=== PATIENT | male | born 1955 | race African-American/Black ===

== ENCOUNTER 2021-02-10 04:36 | Inpatient (IN) ==
[2021-02-10 05:56] LABS: Basophils # 0.1 10*3/uL (0.0-0.2); Basophils % 0.5 % (0.0-0.8); Eosinophils # 0.3 10*3/uL (0.0-0.87); Hematocrit 30.9 VOL% (42.0-52.0); Hemoglobin 10.2 GM/DL (14.0-18.0); Immature Granulocytes % 0.5 %; Immature Granulocytes Absolute 0.05 #; Lymphocytes # 2.2 10*3/uL (1.4-4.0); Lymphocytes % 20.2 % (21.2-54.2); Mean Platelet Volume 9.1 FL (9.6-12.0); Monocytes % 5.8 % (1.7-12.7); Platelet Count 249 T/CUMM (130-400); Red Blood Count 3.36 MC/CUMM (3.8-5.5); Red Cell Distribution Width 12.5 % (9.3-17.3)
[2021-02-10] MEDS ORDERED: GLUCAGON 1 MG VIAL IM PRN (05:58)
[2021-02-10] MEDS ORDERED: DEXTROSE 50% 25 GM/50 ML VIAL IV PRN (05:58)
[2021-02-10 06:04] LABS: Bilirubin,Urine Negative (Negative); Blood, Urine Moderate mg/dL (Negative); Glucose,Urine (UA) 50 mg/dL (Negative); Ketones,Urine 5 mg/dL (Negative); Nitrite,Urine Negative (Negative); Protein,Urine 100 MG/DL; RBC,Urine 35810 /HPF (0-4); Urine Appearance CLOUDY (Clear); Urine Color Red (Yellow); Urine Specific Gravity 1.019 (1.001-1.035); Urine Urobilinogen < 2.0 EU/DL (0.2-1.0)
[2021-02-10 06:06] LABS: PT Patient Result 11.6 SECS (10.5-12.0)
[2021-02-10 06:18] LABS: Albumin 3.1 G/DL (3.4-5.0); Bilirubin,Total 0.7 MG/DL (0.20-1.00); Calcium 8.1 MG/DL (8.5-10.1); Osmolality,Calculated 272.5 MOS/KG (273-304); Potassium 3.4 MMOL/L (3.5-5.1); Total Protein 6.9 G/DL (6.4-8.2)
[2021-02-10] MEDS ORDERED: FINASTERIDE 5 MG TABLET PO SCH (09:00)
[2021-02-10] MEDS ORDERED: MAGNESIUM SULF RIDER 4 GM/100 ML PREMIX IV ONE (09:00)
[2021-02-10] MEDS: SODIUM CHLOR 0.9% KCL 20 MEQ 20 MEQ/1,000 ML BAG IV SCH ×2 (09:34→20:40)
[2021-02-10] MEDS: cefTRIAXone 1,000 MG in SODIUM CHLORIDE 0.9% 100 ML IV SCH (09:49)
[2021-02-10] MEDS: MONTELUKAST 10 MG TABLET PO SCH (09:50)
[2021-02-10] MEDS: ATORVASTATIN 20 MG TABLET PO SCH (09:51)
[2021-02-10] MEDS: METOPROLOL SUCCINATE XL 25 MG TABLET PO SCH (09:51)
[2021-02-10] MEDS: TAMSULOSIN 0.4 MG CAPSULE PO SCH ×2 (09:51→20:40)
[2021-02-10 10:48] LABS: Hematocrit 29.7 VOL% (42.0-52.0); Hemoglobin 9.5 GM/DL (14.0-18.0)
[2021-02-10] MEDS: INSULIN LISPRO 100 UNIT/ML SUBCUT SCH ×5 (11:10→21:01)
[2021-02-10] MEDS: BRIMONIDINE/TIMOLOL OPH SOLN 5 ML BOTTLE BOTH EYES SCH ×2 (11:17→20:40)
[2021-02-10] MEDS: SILDENAFIL 20 MG TABLET PO SCH ×2 (15:04→20:40)
[2021-02-10 18:19] LABS: Hematocrit 29.2 VOL% (42.0-52.0); Hemoglobin 9.3 GM/DL (14.0-18.0)
[2021-02-10] MEDS: BIMATOPROST 0.01% OPH SOLN 2.5 ML BOTTLE BOTH EYES SCH (20:40)
[2021-02-11 02:04] LABS: Hematocrit 27.7 VOL% (42.0-52.0); Hemoglobin 8.7 GM/DL (14.0-18.0)
[2021-02-11 02:05] LABS: Basophils % 0.4 % (0.0-0.8); Eosinophils # 0.4 10*3/uL (0.0-0.87); Eosinophils % 5.3 % (0.00-10.9); Hematocrit 28.2 VOL% (42.0-52.0); Hemoglobin 8.9 GM/DL (14.0-18.0); Immature Granulocytes % 0.2 %; Immature Granulocytes Absolute 0.02 #; Lymphocytes % 24.6 % (21.2-54.2); Mean Corpuscular HGB Conc 31.6 GM/DL (32-36); Mean Platelet Volume 9.1 FL (9.6-12.0); Monocytes % 7.8 % (1.7-12.7); Neutrophils % 61.7 % (38.7-73.9); Platelet Count 210 T/CUMM (130-400); Red Cell Distribution Width 12.8 % (9.3-17.3); White Blood Count 8.3 T/CUMM (4-12)
[2021-02-11 03:31] LABS: Calcium 7.9 MG/DL (8.5-10.1); Osmolality,Calculated 282.7 MOS/KG (273-304); Potassium 3.8 MMOL/L (3.5-5.1)
[2021-02-11] MEDS: SODIUM CHLOR 0.9% KCL 20 MEQ 20 MEQ/1,000 ML BAG IV SCH ×3 (04:46→21:36)
[2021-02-11] MEDS: FINASTERIDE 5 MG TABLET PO SCH (06:10)
[2021-02-11] MEDS: METOPROLOL SUCCINATE XL 25 MG TABLET PO SCH (08:12)
[2021-02-11] MEDS: MONTELUKAST 10 MG TABLET PO SCH (08:14)
[2021-02-11] MEDS: ATORVASTATIN 20 MG TABLET PO SCH (08:15)
[2021-02-11] MEDS: LOSARTAN 50 MG TABLET PO SCH (08:15)
[2021-02-11] MEDS: SILDENAFIL 20 MG TABLET PO SCH ×3 (08:16→21:26)
[2021-02-11] MEDS: TAMSULOSIN 0.4 MG CAPSULE PO SCH ×2 (08:16→21:26)
[2021-02-11] MEDS: INSULIN LISPRO 100 UNIT/ML SUBCUT SCH ×4 (08:17→21:27)
[2021-02-11] MEDS: cefTRIAXone 1,000 MG in SODIUM CHLORIDE 0.9% 100 ML IV SCH (08:18)
[2021-02-11] MEDS: BRIMONIDINE/TIMOLOL OPH SOLN 5 ML BOTTLE BOTH EYES SCH ×2 (08:24→21:26)
[2021-02-11] MEDS ORDERED: MAGNESIUM SULF RIDER 4 GM/100 ML PREMIX IV PRN (09:00)
[2021-02-11] MEDS ORDERED: MAGNESIUM SULF RIDER 2 GM/50 ML PREMIX IV PRN (09:00)
[2021-02-11 14:00] LABS: Hematocrit 28.8 VOL% (42.0-52.0)
[2021-02-11] MEDS: BIMATOPROST 0.01% OPH SOLN 2.5 ML BOTTLE BOTH EYES SCH (21:26)
[2021-02-11 21:48] LABS: Hematocrit 29.3 VOL% (42.0-52.0); Hemoglobin 9.1 GM/DL (14.0-18.0)
[2021-02-12] MEDS: SODIUM CHLOR 0.9% KCL 20 MEQ 20 MEQ/1,000 ML BAG IV SCH ×2 (02:01→14:06)
[2021-02-12 05:21] LABS: Basophils # 0.1 10*3/uL (0.0-0.2); Basophils % 0.7 % (0.0-0.8); Eosinophils # 0.5 10*3/uL (0.0-0.87); Eosinophils % 6.8 % (0.00-10.9); Hematocrit 29.2 VOL% (42.0-52.0); Hemoglobin 8.9 GM/DL (14.0-18.0); Immature Granulocytes % 0.4 %; Immature Granulocytes Absolute 0.03 #; Lymphocytes # 2.1 10*3/uL (1.4-4.0); Lymphocytes % 26.8 % (21.2-54.2); Mean Corpuscular HGB Conc 30.5 GM/DL (32-36); Mean Corpuscular Volume 95.7 FL (87-102); Mean Platelet Volume 9.4 FL (9.6-12.0); Monocytes % 6.5 % (1.7-12.7); Neutrophils % 58.8 % (38.7-73.9); Platelet Count 243 T/CUMM (130-400); Red Blood Count 3.05 MC/CUMM (3.8-5.5); White Blood Count 7.7 T/CUMM (4-12)
[2021-02-12 05:33] LABS: Calcium 7.8 MG/DL (8.5-10.1); Osmolality,Calculated 279.4 MOS/KG (273-304); Potassium 3.6 MMOL/L (3.5-5.1)
[2021-02-12] MEDS: FINASTERIDE 5 MG TABLET PO SCH (05:45)
[2021-02-12] MEDS ORDERED: LIDOCAINE 2% 5 ML VIAL ONE (07:01)
[2021-02-12] MEDS ORDERED: MIDAZOLAM 2 MG/2 ML VIAL ONE (07:01)
[2021-02-12] MEDS ORDERED: fentaNYL 100 MCG/2 ML VIAL ONE (07:01)
[2021-02-12] MEDS ORDERED: propofoL 200 MG/20 ML VIAL IV ONE (07:01)
[2021-02-12] MEDS ORDERED: NEOMYCIN/POLYMYXIN IRRIG SOLN 1 ML AMP BLADDERIRR ONE (08:12)
[2021-02-12] MEDS ORDERED: cefTRIAXone 1,000 MG VIAL ONE (08:24)
[2021-02-12] MEDS ORDERED: PHENYLEPHRINE 1 MG/10 ML SYRINGE IV ONE (08:31)
[2021-02-12] MEDS ORDERED: SEVOFLURANE 1 UNIT/15 MINUTE INH ONE (08:31)
[2021-02-12] MEDS: INSULIN LISPRO 100 UNIT/ML SUBCUT SCH ×4 (09:30→22:24)
[2021-02-12] MEDS: TAMSULOSIN 0.4 MG CAPSULE PO SCH ×2 (09:59→21:25)
[2021-02-12] MEDS: LOSARTAN 50 MG TABLET PO SCH (09:59)
[2021-02-12] MEDS: METOPROLOL SUCCINATE XL 25 MG TABLET PO SCH (09:59)
[2021-02-12] MEDS: MONTELUKAST 10 MG TABLET PO SCH (09:59)
[2021-02-12] MEDS: ATORVASTATIN 20 MG TABLET PO SCH (10:00)
[2021-02-12] MEDS: SILDENAFIL 20 MG TABLET PO SCH ×3 (10:00→21:25)
[2021-02-12] MEDS: cefTRIAXone 1,000 MG in SODIUM CHLORIDE 0.9% 100 ML IV SCH (10:00)
[2021-02-12] MEDS: BRIMONIDINE/TIMOLOL OPH SOLN 5 ML BOTTLE BOTH EYES SCH ×2 (10:04→21:27)
[2021-02-12] MEDS ORDERED: CALCIUM GLUCONATE 2,000 MG in SODIUM CHLORIDE 0.9% 100 ML IV ONE (13:38)
[2021-02-12] MEDS: BIMATOPROST 0.01% OPH SOLN 2.5 ML BOTTLE BOTH EYES SCH (21:26)
[2021-02-13] MEDS: SODIUM CHLOR 0.9% KCL 20 MEQ 20 MEQ/1,000 ML BAG IV SCH (03:41)
[2021-02-13 06:05] LABS: Basophils # 0.1 10*3/uL (0.0-0.2); Basophils % 0.5 % (0.0-0.8); Eosinophils # 0.5 10*3/uL (0.0-0.87); Eosinophils % 5.3 % (0.00-10.9); Hematocrit 29.3 VOL% (42.0-52.0); Hemoglobin 8.9 GM/DL (14.0-18.0); Immature Granulocytes % 0.5 %; Immature Granulocytes Absolute 0.05 #; Lymphocytes # 2.2 10*3/uL (1.4-4.0); Mean Corpuscular HGB Conc 30.4 GM/DL (32-36); Mean Platelet Volume 9.3 FL (9.6-12.0); Monocytes % 7.2 % (1.7-12.7); Neutrophils % 63.5 % (38.7-73.9); Platelet Count 255 T/CUMM (130-400); Red Blood Count 3.02 MC/CUMM (3.8-5.5); Red Cell Distribution Width 13.1 % (9.3-17.3); White Blood Count 9.6 T/CUMM (4-12)
[2021-02-13 06:06] LABS: Basophils % 0.3 % (0.0-0.8); Eosinophils # 0.5 10*3/uL (0.0-0.87); Hematocrit 28.9 VOL% (42.0-52.0); Hemoglobin 9.1 GM/DL (14.0-18.0); Lymphocytes # 2.1 10*3/uL (1.4-4.0); Mean Corpuscular HGB Conc 31.5 GM/DL (32-36); Mean Corpuscular Volume 95.7 FL (87-102); Mean Platelet Volume 9.4 FL (9.6-12.0); Monocytes % 7.1 % (1.7-12.7); Neutrophils % 64.3 % (38.7-73.9); Platelet Count 250 T/CUMM (130-400); Red Blood Count 3.02 MC/CUMM (3.8-5.5); Red Cell Distribution Width 13.1 % (9.3-17.3)
[2021-02-13] MEDS: FINASTERIDE 5 MG TABLET PO SCH (06:33)
[2021-02-13 06:44] LABS: Calcium 8.2 MG/DL (8.5-10.1); Osmolality,Calculated 279.5 MOS/KG (273-304); Potassium 3.9 MMOL/L (3.5-5.1)
[2021-02-13 06:48] LABS: Albumin 2.4 G/DL (3.4-5.0); Bilirubin,Total 0.8 MG/DL (0.20-1.00); Calcium 8.1 MG/DL (8.5-10.1); Osmolality,Calculated 283.3 MOS/KG (273-304)
[2021-02-13] MEDS: BRIMONIDINE/TIMOLOL OPH SOLN 5 ML BOTTLE BOTH EYES SCH ×2 (08:37→20:56)
[2021-02-13] MEDS: INSULIN LISPRO 100 UNIT/ML SUBCUT SCH ×4 (08:37→22:12)
[2021-02-13] MEDS: MONTELUKAST 10 MG TABLET PO SCH (08:37)
[2021-02-13] MEDS: ATORVASTATIN 20 MG TABLET PO SCH (08:38)
[2021-02-13] MEDS: TAMSULOSIN 0.4 MG CAPSULE PO SCH ×2 (08:38→20:57)
[2021-02-13] MEDS: SILDENAFIL 20 MG TABLET PO SCH ×3 (08:38→20:53)
[2021-02-13] MEDS: LOSARTAN 50 MG TABLET PO SCH (08:38)
[2021-02-13] MEDS: METOPROLOL SUCCINATE XL 25 MG TABLET PO SCH (08:38)
[2021-02-13] MEDS: cefTRIAXone 1,000 MG in SODIUM CHLORIDE 0.9% 100 ML IV SCH (08:38)
[2021-02-13] MEDS: FERROUS SULFATE 325 MG TABLET PO SCH ×2 (15:19→20:57)
[2021-02-13] MEDS: BIMATOPROST 0.01% OPH SOLN 2.5 ML BOTTLE BOTH EYES SCH (20:56)
[2021-02-14] MEDS: FINASTERIDE 5 MG TABLET PO SCH (05:54)
[2021-02-14 06:37] LABS: Basophils % 0.5 % (0.0-0.8); Eosinophils # 0.4 10*3/uL (0.0-0.87); Hematocrit 28.6 VOL% (42.0-52.0); Hemoglobin 9.1 GM/DL (14.0-18.0); Immature Granulocytes % 0.2 %; Immature Granulocytes Absolute 0.02 #; Lymphocytes # 2.5 10*3/uL (1.4-4.0); Lymphocytes % 30.7 % (21.2-54.2); Mean Corpuscular HGB Conc 31.8 GM/DL (32-36); Mean Corpuscular Volume 94.7 FL (87-102); Mean Platelet Volume 9.4 FL (9.6-12.0); Neutrophils % 57.6 % (38.7-73.9); Platelet Count 293 T/CUMM (130-400); Red Blood Count 3.02 MC/CUMM (3.8-5.5); Red Cell Distribution Width 13.1 % (9.3-17.3); White Blood Count 8.1 T/CUMM (4-12)
[2021-02-14 06:55] LABS: Calcium 8.6 MG/DL (8.5-10.1); Osmolality,Calculated 276.7 MOS/KG (273-304); Potassium 3.8 MMOL/L (3.5-5.1)
[2021-02-14] MEDS: ATORVASTATIN 20 MG TABLET PO SCH (08:13)
[2021-02-14] MEDS: TAMSULOSIN 0.4 MG CAPSULE PO SCH ×2 (08:13→21:05)
[2021-02-14] MEDS: SILDENAFIL 20 MG TABLET PO SCH ×3 (08:13→21:05)
[2021-02-14] MEDS: METOPROLOL SUCCINATE XL 25 MG TABLET PO SCH (08:14)
[2021-02-14] MEDS: LOSARTAN 50 MG TABLET PO SCH (08:14)
[2021-02-14] MEDS: MONTELUKAST 10 MG TABLET PO SCH (08:14)
[2021-02-14] MEDS: INSULIN LISPRO 100 UNIT/ML SUBCUT SCH ×4 (08:14→21:05)
[2021-02-14] MEDS: FERROUS SULFATE 325 MG TABLET PO SCH ×3 (08:16→21:05)
[2021-02-14] MEDS: BRIMONIDINE/TIMOLOL OPH SOLN 5 ML BOTTLE BOTH EYES SCH ×2 (08:16→21:05)
[2021-02-14] MEDS: cefTRIAXone 1,000 MG in SODIUM CHLORIDE 0.9% 100 ML IV SCH (09:28)
[2021-02-14] MEDS: BIMATOPROST 0.01% OPH SOLN 2.5 ML BOTTLE BOTH EYES SCH (21:05)
[2021-02-15] MEDS: FINASTERIDE 5 MG TABLET PO SCH (05:52)
[2021-02-15 06:52] LABS: Basophils # 0.1 10*3/uL (0.0-0.2); Basophils % 0.7 % (0.0-0.8); Eosinophils # 0.5 10*3/uL (0.0-0.87); Eosinophils % 7.9 % (0.00-10.9); Hematocrit 28.5 VOL% (42.0-52.0); Hemoglobin 8.6 GM/DL (14.0-18.0); Immature Granulocytes % 0.4 %; Immature Granulocytes Absolute 0.03 #; Lymphocytes # 2.1 10*3/uL (1.4-4.0); Lymphocytes % 30.5 % (21.2-54.2); Mean Corpuscular HGB Conc 30.2 GM/DL (32-36); Mean Corpuscular Volume 96.3 FL (87-102); Mean Platelet Volume 9.3 FL (9.6-12.0); Monocytes % 7.1 % (1.7-12.7); Neutrophils % 53.4 % (38.7-73.9); Platelet Count 286 T/CUMM (130-400); Red Blood Count 2.96 MC/CUMM (3.8-5.5); Red Cell Distribution Width 13.2 % (9.3-17.3); White Blood Count 6.9 T/CUMM (4-12)
[2021-02-15 07:25] LABS: Calcium 8.6 MG/DL (8.5-10.1); Osmolality,Calculated 281.4 MOS/KG (273-304)
[2021-02-15] MEDS: TAMSULOSIN 0.4 MG CAPSULE PO SCH ×2 (08:24→20:25)
[2021-02-15] MEDS: FERROUS SULFATE 325 MG TABLET PO SCH ×3 (08:24→20:25)
[2021-02-15] MEDS: LOSARTAN 50 MG TABLET PO SCH (08:24)
[2021-02-15] MEDS: MONTELUKAST 10 MG TABLET PO SCH (08:24)
[2021-02-15] MEDS: ATORVASTATIN 20 MG TABLET PO SCH (08:24)
[2021-02-15] MEDS: INSULIN LISPRO 100 UNIT/ML SUBCUT SCH ×4 (08:25→21:35)
[2021-02-15] MEDS: SILDENAFIL 20 MG TABLET PO SCH ×3 (08:25→20:25)
[2021-02-15] MEDS: METOPROLOL SUCCINATE XL 25 MG TABLET PO SCH (08:25)
[2021-02-15] MEDS: BRIMONIDINE/TIMOLOL OPH SOLN 5 ML BOTTLE BOTH EYES SCH ×2 (08:33→20:25)
[2021-02-15] MEDS: cefTRIAXone 1,000 MG in SODIUM CHLORIDE 0.9% 100 ML IV SCH (08:47)
[2021-02-15] MEDS: BIMATOPROST 0.01% OPH SOLN 2.5 ML BOTTLE BOTH EYES SCH (20:25)
[2021-02-16 05:32] LABS: Basophils % 0.4 % (0.0-0.8); Eosinophils # 0.5 10*3/uL (0.0-0.87); Eosinophils % 6.2 % (0.00-10.9); Hematocrit 27.4 VOL% (42.0-52.0); Hemoglobin 8.4 GM/DL (14.0-18.0); Immature Granulocytes % 0.4 %; Immature Granulocytes Absolute 0.03 #; Lymphocytes # 2.2 10*3/uL (1.4-4.0); Lymphocytes % 29.3 % (21.2-54.2); Mean Corpuscular HGB Conc 30.7 GM/DL (32-36); Mean Corpuscular Volume 95.1 FL (87-102); Monocytes % 7.6 % (1.7-12.7); Neutrophils % 56.1 % (38.7-73.9); Platelet Count 294 T/CUMM (130-400); Red Blood Count 2.88 MC/CUMM (3.8-5.5); Red Cell Distribution Width 13.2 % (9.3-17.3); White Blood Count 7.6 T/CUMM (4-12)
[2021-02-16 05:54] LABS: Calcium 8.2 MG/DL (8.5-10.1); Osmolality,Calculated 283.3 MOS/KG (273-304)
[2021-02-16] MEDS: FINASTERIDE 5 MG TABLET PO SCH (06:26)
[2021-02-16] MEDS ORDERED: SODIUM CHLORIDE 0.9% 1,000 ML IV PRN (07:01)
[2021-02-16] MEDS ORDERED: cefTRIAXone 1,000 MG in SODIUM CHLORIDE 0.9% 100 ML IV ONE (07:03)
[2021-02-16] MEDS: SILDENAFIL 20 MG TABLET PO SCH ×3 (08:47→22:12)
[2021-02-16] MEDS: LOSARTAN 25 MG TABLET PO SCH (08:47)
[2021-02-16] MEDS: TAMSULOSIN 0.4 MG CAPSULE PO SCH ×2 (08:48→22:10)
[2021-02-16] MEDS: INSULIN LISPRO 100 UNIT/ML SUBCUT SCH ×4 (08:48→22:11)
[2021-02-16] MEDS: METOPROLOL SUCCINATE XL 25 MG TABLET PO SCH (08:48)
[2021-02-16] MEDS: FERROUS SULFATE 325 MG TABLET PO SCH ×3 (08:48→22:10)
[2021-02-16] MEDS: MONTELUKAST 10 MG TABLET PO SCH (08:48)
[2021-02-16] MEDS: ATORVASTATIN 20 MG TABLET PO SCH (08:48)
[2021-02-16] MEDS: BRIMONIDINE/TIMOLOL OPH SOLN 5 ML BOTTLE BOTH EYES SCH ×2 (09:15→22:10)
[2021-02-16] MEDS: cefTRIAXone 1,000 MG in SODIUM CHLORIDE 0.9% 100 ML IV SCH (11:33)
[2021-02-16] MEDS ORDERED: fentaNYL 100 MCG/2 ML VIAL ONE ×3 (14:53→16:25)
[2021-02-16] MEDS ORDERED: propofoL 200 MG/20 ML VIAL IV ONE ×2 (14:53→15:58)
[2021-02-16] MEDS ORDERED: LIDOCAINE 2% 5 ML VIAL ONE (14:53)
[2021-02-16] MEDS ORDERED: ONDANSETRON 4 MG/2 ML VIAL ONE ×2 (14:53→16:11)
[2021-02-16] MEDS ORDERED: MIDAZOLAM 2 MG/2 ML VIAL ONE (14:54)
[2021-02-16] MEDS ORDERED: ePHEDrine 50 MG/ML VIAL ONE (15:23)
[2021-02-16] MEDS ORDERED: ESMOLOL 100 MG/10 ML VIAL IV ONE (16:06)
[2021-02-16] MEDS ORDERED: GLYCOPYRROLATE 0.4 MG/2 ML VIAL ONE (16:31)
[2021-02-16] MEDS ORDERED: PHENYLEPHRINE 1 MG/10 ML SYRINGE IV ONE ×3 (16:49→17:37)
[2021-02-16] MEDS ORDERED: LACTATED RINGERS 1,000 ML IV ONE (17:28)
[2021-02-16] MEDS ORDERED: LORazepam 2 MG/1 ML VIAL ONE (18:21)
[2021-02-16] MEDS ORDERED: LORazepam 2 MG/1 ML VIAL IV ONE (18:41)
[2021-02-16] MEDS ORDERED: ONDANSETRON 4 MG/2 ML VIAL IV PRN (18:42)
[2021-02-16] MEDS ORDERED: diphenhydrAMINE 50 MG/1 ML VIAL IV PRN (18:42)
[2021-02-16] MEDS ORDERED: PROMETHAZINE INJ 25 MG in SODIUM CHLORIDE 0.9% 50 ML IV PRN (18:42)
[2021-02-16] MEDS ORDERED: MEPERIDINE 25 MG/1 ML VIAL IV PRN (18:42)
[2021-02-16] MEDS ORDERED: HYDROmorphone 2 MG/1 ML VIAL IV PRN (18:42)
[2021-02-16] MEDS: ONDANSETRON 4 MG/2 ML VIAL IV PRN ×2 (20:07→23:27)
[2021-02-16] MEDS: BIMATOPROST 0.01% OPH SOLN 2.5 ML BOTTLE BOTH EYES SCH (22:11)
[2021-02-17 05:42] LABS: Basophils % 0.3 % (0.0-0.8); Eosinophils # 0.1 10*3/uL (0.0-0.87); Eosinophils % 1.5 % (0.00-10.9); Hematocrit 32.4 VOL% (42.0-52.0); Hemoglobin 10.1 GM/DL (14.0-18.0); Immature Granulocytes % 0.3 %; Immature Granulocytes Absolute 0.03 #; Lymphocytes # 1.3 10*3/uL (1.4-4.0); Lymphocytes % 13.2 % (21.2-54.2); Mean Corpuscular HGB Conc 31.2 GM/DL (32-36); Mean Corpuscular Volume 95.3 FL (87-102); Mean Platelet Volume 8.9 FL (9.6-12.0); Monocytes % 5.4 % (1.7-12.7); Neutrophils % 79.3 % (38.7-73.9); Platelet Count 279 T/CUMM (130-400); Red Cell Distribution Width 13.6 % (9.3-17.3); White Blood Count 9.5 T/CUMM (4-12)
[2021-02-17 05:56] LABS: Calcium 8.5 MG/DL (8.5-10.1); Osmolality,Calculated 279.5 MOS/KG (273-304); Potassium 4.7 MMOL/L (3.5-5.1)
[2021-02-17] MEDS: FINASTERIDE 5 MG TABLET PO SCH (06:04)
[2021-02-17] MEDS: FERROUS SULFATE 325 MG TABLET PO SCH ×3 (08:50→21:27)
[2021-02-17] MEDS: LOSARTAN 25 MG TABLET PO SCH (08:50)
[2021-02-17] MEDS: SILDENAFIL 20 MG TABLET PO SCH ×3 (08:50→21:26)
[2021-02-17] MEDS: METOPROLOL SUCCINATE XL 25 MG TABLET PO SCH (08:50)
[2021-02-17] MEDS: ATORVASTATIN 20 MG TABLET PO SCH (08:51)
[2021-02-17] MEDS: BRIMONIDINE/TIMOLOL OPH SOLN 5 ML BOTTLE BOTH EYES SCH ×2 (08:51→21:27)
[2021-02-17] MEDS: TAMSULOSIN 0.4 MG CAPSULE PO SCH ×2 (08:51→21:26)
[2021-02-17] MEDS: MONTELUKAST 10 MG TABLET PO SCH (08:51)
[2021-02-17] MEDS: cefTRIAXone 1,000 MG in SODIUM CHLORIDE 0.9% 100 ML IV SCH (08:54)
[2021-02-17] MEDS: INSULIN LISPRO 100 UNIT/ML SUBCUT SCH ×4 (09:35→21:27)
[2021-02-17] MEDS ORDERED: MAGNESIUM SULF RIDER 1 GM/100 ML PREMIX IV ONE (11:00)
[2021-02-17] MEDS: BIMATOPROST 0.01% OPH SOLN 2.5 ML BOTTLE BOTH EYES SCH (21:27)
[2021-02-18] MEDS: FINASTERIDE 5 MG TABLET PO SCH (05:00)
[2021-02-18 05:37] LABS: Basophils # 0.1 10*3/uL (0.0-0.2); Basophils % 0.6 % (0.0-0.8); Eosinophils # 0.4 10*3/uL (0.0-0.87); Eosinophils % 4.7 % (0.00-10.9); Hematocrit 29.6 VOL% (42.0-52.0); Hemoglobin 9.2 GM/DL (14.0-18.0); Immature Granulocytes % 0.2 %; Immature Granulocytes Absolute 0.02 #; Mean Corpuscular HGB Conc 31.1 GM/DL (32-36); Mean Corpuscular Volume 95.8 FL (87-102); Mean Platelet Volume 8.8 FL (9.6-12.0); Monocytes % 7.4 % (1.7-12.7); Neutrophils % 64.1 % (38.7-73.9); Platelet Count 278 T/CUMM (130-400); Red Blood Count 3.09 MC/CUMM (3.8-5.5); Red Cell Distribution Width 13.7 % (9.3-17.3); White Blood Count 8.9 T/CUMM (4-12)
[2021-02-18] MEDS ORDERED: MAGNESIUM CHLORIDE 64 MG TABLET PO SCH (09:00)
[2021-02-18] MEDS: INSULIN LISPRO 100 UNIT/ML SUBCUT SCH ×2 (09:02→13:20)
[2021-02-18] MEDS: SILDENAFIL 20 MG TABLET PO SCH (09:03)
[2021-02-18] MEDS: TAMSULOSIN 0.4 MG CAPSULE PO SCH (09:03)
[2021-02-18] MEDS: MONTELUKAST 10 MG TABLET PO SCH (09:03)
[2021-02-18] MEDS: LOSARTAN 25 MG TABLET PO SCH (09:03)
[2021-02-18] MEDS: ATORVASTATIN 20 MG TABLET PO SCH (09:04)
[2021-02-18] MEDS: FERROUS SULFATE 325 MG TABLET PO SCH (09:04)
[2021-02-18] MEDS: METOPROLOL SUCCINATE XL 25 MG TABLET PO SCH (09:04)
[2021-02-18] MEDS: BRIMONIDINE/TIMOLOL OPH SOLN 5 ML BOTTLE BOTH EYES SCH (09:06)
[2021-02-18] MEDS: cefTRIAXone 1,000 MG in SODIUM CHLORIDE 0.9% 100 ML IV SCH (09:07)
[2021-02-18 12:06] VITALS: BP 147/53
== END 2021-02-18 14:20 | disposition home or self-care (01) | DRG 988 ==
LOC: N.ED 04:36 → N.EDINP 04:36 → SUATTDRO 05:58 → N.EDINP 07:06 → N.5E 07:26 → SUATTDRO 02-11 08:36
PROVIDERS: ADMIT Internal Medicine; ATTEND Internal Medicine